=== PATIENT | female | born 1940 | race Caucasian/White ===

== ENCOUNTER 2024-06-27 15:46 | Emergency (ER) | payer MEDICAID, SELFPAY ==
--- NOTE | ~2024-06-27 | CT_ITS ---
CLINICAL HISTORY: new right arm tremor CT head without contrast Comparison: None Findings: No acute intracranial hemorrhage. No midline shift or hydrocephalus. Mild-moderate volume loss is generalized. Mild white matter lesions likely related to small-vessel ischemic disease. No large arterial territorial infarction by CT. Cavum velum interpositum. No acute skull fracture. Mild nasal bone lucencies appear old/chronic. Mild mucosal thickening of the imaged paranasal sinuses. Trace left mastoid effusion. IMPRESSION: No acute intracranial abnormality by CT. This document has been electronically signed by: Rl Mondragon MD on 06/27/2024 20:28:28
--- NOTE | ~2024-06-27 | XR_ITS ---
CLINICAL HISTORY: pain 3 view right shoulder Comparison: None Findings: Mild deformity of the right clavicle appears old/chronic. Mild-moderate osteoarthritis of the right AC joint. Mild to moderate osteoarthritis of the right glenohumeral joint with chronic old appearing deformity in cystic lucencies of the proximal humerus. No acute displaced fracture. No dislocation. Interstitial opacities are nonspecific in the imaged lungs and may reflect pulmonary edema or pneumonitis. Mild atelectasis also present. Imaged mild rib deformities appear old. IMPRESSION: 1. No acute fracture or dislocation of the right shoulder. 2. Mild-moderate osteoarthritis. This document has been electronically signed by: Rl Mondragon MD on 06/27/2024 19:09:40
[2024-06-27 16:16] VITALS: BP 141/51; PULSE 68; RESP 18; TEMP 36.2; O2SAT 95; BMI 32.9
--- NOTE | 2024-06-27 16:17 | ED.GENADULT ---
HPI - General Adult General Chief complaint: General Medical Stated complaint: rt arm tremors? Time Seen by Provider: 06/27/24 18:03 Source: patient, family (Daughter), RN notes reviewed and old records reviewed Mode of arrival: ambulatory Limitations: no limitations History of Present Illness ED Provider: Shamir MCGARRY narrative: 83-year-old female presents for evaluation of right arm/shoulder tremors. Vomiting per the patient's daughter, the patient had an episode of vomiting 3 nights ago on Saturday night. She has had intermittent tremors to the right shoulder ever since. She also complains of pain to the right shoulder and limited range of motion. She denies any headache, neck pain. There was no loss of consciousness pain She denies any chest pain, shortness of breath. This reportedly has happened in the past In the lack of the daughter is concerned because the patient is visiting from [place] and is not honest with when she falls, and therefore the daughter is concerned that there was a fall that the patient is not forthcoming with all Related Data Allergies Allergy/AdvReac Type Severity Reaction Status Date / Time No Known Allergies Allergy Verified 06/27/24 16:20 Review of Systems Constitutional: Constitutional: Denies body ache(s), Denies chills, Denies frequent falls and Denies headache(s) Eyes: Eyes: Denies blurry vision, Denies floaters and Denies irritation ENT: Denies vertigo, Denies dizziness, Denies otalgia, Denies facial pain and Denies headache(s) Cardiovascular: Cardiovascular: Denies chest pain and Denies dyspnea Respiratory: Respiratory: Denies cough and Denies dyspnea Gastrointestinal: Gastrointestinal: Denies abdominal pain, Denies nausea and Denies vomiting Musculoskeletal: Musculoskeletal: Denies back pain, Denies deformity, Reports limited range of motion, Denies numbness and Reports stiffness Neurologic: Denies vertigo, Denies dizziness, Denies frequent falls, Denies headache(s), Denies numbness and Reports tremor(s) Psychiatric: Psychiatric: Denies anxiety [facility] Social History Social History Advance Directives: No Advance Directives Information Provided: Yes Physical Exam ED Vital Signs: Vital Signs - 24 hr 06/27/24 16:16 06/27/24 16:49 06/27/24 19:11 Temperature 97.1 F 97.9 F 97.7 F Pulse Rate 68 60 58 Respiratory Rate 18 16 18 Blood Pressure 141/51 H 140/65 H 197/81 H Pulse Oximetry 95 98 96 Oxygen Delivery Method Room Air Room Air 06/27/24 20:00 Temperature 97.0 F Pulse Rate 50 Respiratory Rate 18 Blood Pressure 169/70 H Pulse Oximetry 97 Oxygen Delivery Method BMI result Body Mass Index 32.9 Const General: healthy appearing, comfortable, no acute distress, alert and awake Nutritional Appearance: well nourished Orientation/consciousness: patient oriented x3 HENMT Head: Yes normocephalic and Yes atraumatic Eyes Eyelids: Yes eyelids normal Conjunctivae: conjunctivae normal Sclerae: sclerae normal Corneas: corneas normal Pupils: Equal, round and reactive pupils present EOM: EOMs intact bilaterally Resp Effort & Inspection: normal respiratory effort, able to speak in complete sentences and not labored Cardio Rate: regular rate Rhythm: regular rhythm Skin General skin exam: elasticity normal Neuro General: patient oriented x3 Cranial nerves: Yes CN's II-XII intact bilaterally, Yes Facial sensation intact/muscles of mastication intact, Yes Equal, round and reactive pupils present, Yes Bilaterally intact EOM present and Yes Normal facial strength present Cognition (Neuro): normal cognition Motor exam (neuro): 5/5 motor strength present throughout (Including right upper extremity) and Normal motor muscle tone present throughout Extrem Other: Patient has tenderness to the right lateral shoulder in the proximal humerus area. There was no obvious deformity. She is unable to abduct the right upper extremity above the shoulder. Course Course Course Narrative: Jared Silva VESSEL LINER 06/27 1615 This is a rapid medical exam. Deferred additional HPI, ROS, PE to primary provider. 83 yo female with history of hypothyroidism, HTN, HLD here with two episodes of vomiting (Saturday), after vomiting noticed intermittent shaking of the right upper arm. Per patient this has happened before. Not noticed in triage. Will obtain labs. VSS Medical Decision Making Medical Decision Making MDM Narrative: 83-year-old female presents for evaluation of a tremor to the right shoulder. She has not had any tremors during my exam. However the patient's daughter shows me a video from this morning that shows an apparent tremor of the right upper extremity. It appears that it could be consistent with a muscle spasm possibly due to injury. Plan for x-rays. The patient has no neuro deficits. Cranial nerves are intact, there was no facial droop, she is speaking clearly, strength is intact. However given the new onset of tremor we will get a CT scan of the brain. I do feel that a musculoskeletal cause is more likely at this time Differential Diagnosis Differential Diagnoses: The differential diagnosis associated with the presentation includes Muscle strain CVA Brain mass Muscle spasm Humerus fracture Shoulder dislocation Radiculopathy Lab Data MDM Lab Attestation statement: I reviewed the patient's lab results. No leukocytosis or significant anemia. Normal platelet count. No significant electrolyte abnormalities warranting intervention. Slight elevation of BUN with a normal creatinine 0.73 06/27/24 16:25 06/27/24 16:25 Labs: Lab Results 06/27/24 Range/Units 16:25 WBC 9.4 (4.8-10.8) X10*3/uL RBC 4.26 (4.20-5.50) X10*6/uL Hgb 12.3 (12.0-16.0) g/dl Hct 36.9 L (37.0-47.0) % MCV 86.6 (80.0-98.0) fL MCH 28.9 (27.0-33.0) pg MCHC 33.3 (31.0-35.0) g/dl RDW 14.6 (11.0-16.0) % Plt Count 245 (160-400) X10*3/uL MPV 10.4 (9.4-12.3) fL Immature Gran % (Auto) 0.4 (0.0-0.4) % Neut % (Auto) 70.5 (45-73) % Lymph % (Auto) 21.1 (20-40) % [place] % (Auto) 5.5 (2-11) % Eos % (Auto) 1.9 (0-4) % Baso % (Auto) 0.6 (0-2) % Lymph # (Auto) 2.0 (1.2-4.9) X10*3/uL [place] # (Auto) 0.5 (0.1-1.2) X10*3/uL Eos # (Auto) 0.2 (0.0-0.4) X10*3/uL Baso # (Auto) 0.1 (0.0-0.2) X10*3/uL Abs Immat Gran (auto) 0.04 H (0.00-0.03) X10*3/uL Absolute Neuts (auto) 6.6 (2.0-8.3) x10*3/uL Absolute Nucleated RBC 0.000 (0.0-0.012) X10*3/uL Nucleated RBC % (auto) 0.0 (0.0-0.2) /100WBC Sodium 141 (135-145) mmol/L Potassium 4.5 (3.3-5.1) mmol/L Chloride 108 (96-108) mmol/L Carbon Dioxide 26 (22-29) mmol/L Anion Gap 12 (12-20) BUN 20 H (9-16) mg/dL Creatinine 0.73 (0.5-1.4) mg/dL Estim Creat Clear Calc 41.7 Estimated GFR > 60 Random Glucose 100 (60-115) mg/dL Calcium 9.7 (8.4-10.2) mg/dL Magnesium 2.2 (1.6-2.6) mg/dL Total Bilirubin 0.5 (0.0-1.0) mg/dL Direct Bilirubin 0.2 (0.0-0.5) mg/dL AST 25 (5-31) U/L ALT 22 (0-31) U/L Alkaline Phosphatase 78 (39-117) U/L Total Protein 7.3 (6.5-8.0) g/dL Albumin 4.2 (3.5-5.0) g/dL Independent Interpretation I performed an independent interpretation of an: CT Scan Interpretation: agree with Radiology interpretation, no obvious acuteabnormalities Radiology Impression Discussion of test interpretation with radiology: I have reviewed the radiologist's reading. Radiologist Impression: Findings: No acute intracranial hemorrhage. No midline shift or hydrocephalus. Mild-moderate volume loss is generalized. Mild white matter lesions likely related to small-vessel ischemic disease. No large arterial territorial infarction by CT. Cavum velum interpositum. No acute skull fracture. Mild nasal bone lucencies appear old/chronic. Mild mucosal thickening of the imaged paranasal sinuses. Trace left mastoid effusion. IMPRESSION: No acute intracranial abnormality by CT. This document has been electronically signed by: Rl Mondragon MD on 06/27/2024 20:28:28 Discharge Plan Discharge Clinical Impression: Acute pain of right shoulder Patient Disposition: Home, Self-Care Instructions: Arthralgia (ED), Shoulder Pain (ED) Additional Instructions: Justus had a workup that included blood work, CT scan and x-rays. Her blood work was reassuring. The CT scan of her head did not show any concerning abnormalities the x-ray of her right shoulder showed a mild deformity of the right collarbone as well as a mild deformity of the proximal humerus these both appear old and or chronic. there is no new or recent fracture. The x-ray also shows [id number] arthritis follow-up with your primary doctor, return for new or worsening symptoms CLINICAL HISTORY: pain 3 view right shoulder Comparison: None Findings: Mild deformity of the right clavicle appears old/chronic. Mild-moderate osteoarthritis of the right AC joint. Mild to moderate osteoarthritis of the right glenohumeral joint with chronic old appearing deformity in cystic lucencies of the proximal humerus. No acute displaced fracture. No dislocation. Interstitial opacities are nonspecific in the imaged lungs and may reflect pulmonary edema or pneumonitis. Mild atelectasis also present. Imaged mild rib deformities appear old. IMPRESSION: 1. No acute fracture or dislocation of the right shoulder. 2. Mild-moderate osteoarthritis. This document has been electronically signed by: Rl Mondragon MD on 06/27/2024 19:09:40 Print Language: Monegasque
[2024-06-27 16:29] LABS: MANUAL DIFF FLAG NO
[2024-06-27 16:37] LABS: Basophils Absolute Auto 0.1 X10*3/uL (0.0-0.2); Basophils Percent Auto 0.6 % (0-2); Eosinophils Absolute Auto 0.2 X10*3/uL (0.0-0.4); Eosinophils Percent Auto 1.9 % (0-4); Hematocrit 36.9 % (37.0-47.0); Hemoglobin 12.3 g/dl (12.0-16.0); Imm Gran Abs Auto 0.04 X10*3/uL (0.00-0.03); Imm Gran Pct Auto 0.4 % (0.0-0.4); Lymphocytes Percent Auto 21.1 % (20-40); Mean Corpuscular HGB Conc 33.3 g/dl (31.0-35.0); Mean Corpuscular Hemoglobin 28.9 pg (27.0-33.0); Mean Corpuscular Volume 86.6 fL (80.0-98.0); Mean Platelet Volume 10.4 fL (9.4-12.3); Monocytes Absolute Auto 0.5 X10*3/uL (0.1-1.2); Monocytes Percent Auto 5.5 % (2-11); Neutrophils Absolute Auto 6.6 x10*3/uL (2.0-8.3); Neutrophils Percent Auto 70.5 % (45-73); Platelet Count 245 X10*3/uL (160-400); Red Blood Count 4.26 X10*6/uL (4.20-5.50); Red Cell Distribution Width 14.6 % (11.0-16.0); White Blood Count 9.4 X10*3/uL (4.8-10.8)
[2024-06-27 16:44] LABS: Alanine Aminotransferase 22 U/L (0-31); Albumin Level 4.2 g/dL (3.5-5.0); Alkaline Phosphatase 78 U/L (39-117); Anion Gap 12 (12-20); Aspartate Amino Transferase 25 U/L (5-31); Bilirubin Direct 0.2 mg/dL (0.0-0.5); Bilirubin Total 0.5 mg/dL (0.0-1.0); Blood Urea Nitrogen 20 mg/dL (9-16); Calcium 9.7 mg/dL (8.4-10.2); Carbon Dioxide 26 mmol/L (22-29); Chloride 108 mmol/L (96-108); Creatinine Clr Calc Pharmacy 41.7; Estimated Glomerular Filt Rate > 60; Glucose Random 100 mg/dL (60-115); Magnesium 2.2 mg/dL (1.6-2.6); Potassium 4.5 mmol/L (3.3-5.1); Sodium 141 mmol/L (135-145); Total Protein 7.3 g/dL (6.5-8.0)
[2024-06-27 16:49] VITALS: BP 140/65; PULSE 60; RESP 16; TEMP 36.6; O2SAT 98
--- NOTE | 2024-06-27 16:56 | PC.NURSE ---
Patient is a 83 yo female with history of hypothyroidism, HTN, HLD here with two episodes of vomiting (Saturday), after vomiting noticed intermittent shaking of the right upper arm. Per patient this has happened before. Daughters video visualized and unable to see the tremors. Lungs clear bilat. Respirations even and non-labored. Abdomen soft, distended with positive bowel sounds. Positive pedal pulses with trace edema noted.
[2024-06-27 19:11] VITALS: BP 197/81; PULSE 58; RESP 18; TEMP 36.5; O2SAT 96
[2024-06-27 20:00] VITALS: BP 169/70; PULSE 50; RESP 18; TEMP 36.1; O2SAT 97
[2024-06-27 21:04] VITALS: BP 169/70; PULSE 50; RESP 18; TEMP 36.1; O2SAT 97
== END 2024-06-27 21:05 | disposition home or self-care (01) ==
PROVIDERS: Nurse Practitioner Family; Emergency Provider Emergency Medicine
DX: M25.511 Pain in right shoulder (principal); R11.10 Vomiting, unspecified; R25.1 Tremor, unspecified
CPT/HCPCS: 36415; 70450; 73030; 80048; 80076; 83735; 85025; 99284

== ENCOUNTER → 2024-06-27 18:12 | Outpatient (BNV) | payer SELFPAY | PROVIDERS: Emergency Provider Emergency Medicine; Visit Provider Radiology Neuroradiology | DX: R25.1 Tremor, unspecified (principal); M19.011 Primary osteoarthritis, right shoulder | CPT/HCPCS: 70450; 73030 ==

== ENCOUNTER 2024-12-22 09:54 | Emergency (ER) | payer MEDICAID, SELFPAY ==
--- NOTE | ~2024-12-22 | CT_ITS ---
EXAMINATION: CT HEAD WITHOUT CONTRAST CLINICAL INFORMATION: Right arm tremor COMPARISON: CT 06/27/2024 TECHNIQUE: Contiguous axial imaging was performed from the skull base to vertex without intravenous administration of contrast. This CT examination was performed using dose optimization techniques as appropriate, variously including the following: *Automated exposure control *Adjustment of mA and/or kV according to patient size (this includes techniques or standardized protocols for targeted exams where dose is matched to indication/reason for exam; i.e. extremities or head) *Use of iterative reconstruction technique FINDINGS: There is no evidence of acute intracranial hemorrhage or edematous large vessel territorial infarction. No abnormal mass effect or midline shift is seen. Jarvis to white matter differentiation is well preserved. No abnormal extra-axial fluid collections are identified. Commensurate prominence of the ventricles and sulci is compatible with generalized parenchymal volume loss. There is moderate periventricular and subcortical white matter hypoattenuation, most likely representing microangiopathic disease. No acute calvarial fracture.. Unchanged small sclerotic focus in the right frontal calvarium.. Paranasal sinuses and mastoid air cells are well-aerated. CT/CT head/brain wo IV con IMPRESSION: 1. No CT evidence of acute intracranial hemorrhage or edematous large vessel territorial infarction. 2. 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 Electronically signed by: Julius Cee MD 12/22/2024 10:57 AM [facility]
[2024-12-22 10:14] VITALS: BP 158/70; PULSE 71; RESP 20; TEMP 35.9; O2SAT 96; BMI 28.1
--- NOTE | 2024-12-22 10:14 | ED.GENADULT ---
HPI - General Adult General Chief complaint: General Medical Stated complaint: tremors Time Seen by Provider: 12/22/24 16:08 History of Present Illness ED Provider: Dhiraj MCGARRY narrative: The patient is an 84-year-old woman who has recently been considered to have dementia and who was moved from [place] to this area about 6 months ago. She was moved up here by her daughter who was concerned about her mother's health. The patient apparently had an MRI in [place] before moving to this area and she has followed up with the primary care doctor in this office who arranged an outpatient MRI through the [facility] system recently because of the patient's new diagnosis of dementia also to see if there was any potential suspicion for normal pressure hydrocephalus. The patient had an MRI of the brain without contrast on December 04, 2024, proximally 3 weeks ago. The MRI showed hyperintense foci in the white matter which was considered nonspecific but most likely reflecting chronic small-vessel disease. There were no findings to suggest normal pressure hydrocephalus. The patient's daughter said that the patient has been complaining of a sense of her right shoulder or arm moving abnormally. The patient's daughter says that the patient has chronic pain in the right arm. She says that about 2 months ago the patient had an episode that lasted just a few sec in which the right arm seemed to move in voluntarily. The patient is in the emergency room today because the patient had a brief episode of right shoulder abnormal movement yesterday evening and then another movement that was more impressive this morning. The episode lasted about 10 seconds. This episode was not associated with any other abnormalities in her neurological status. There was no change in her speech, no facial abnormalities, no right leg abnormalities. She did not lose consciousness. It was not associated with any headache or chest pain. Nevertheless the daughter was alarmed by the episode and brought her to the emergency room. The patient is on levothyroxine, losartan, atorvastatin, and cholecalciferol. Related Data Allergies Allergy/AdvReac Type Severity Reaction Status Date / Time No Known Allergies Allergy Verified 12/22/24 10:19 Review of Systems Review of Systems: Yes all other systems are reviewed and are negative [facility] Social History Social History Advance Directives: Yes Advance Directives Information Provided: No Advance Directives on File: No Do you have a plan to hurt others: No Plan Physical Exam ED Vital Signs: Vital Signs - 24 hr 12/22/24 10:14 11/11/25 16:02 12/22/24 16:59 Temperature 96.6 F L 0 F L Pulse Rate 71 54 54 Respiratory Rate 20 17 17 Blood Pressure 158/70 H 149/57 H 149/57 H Pulse Oximetry 96 95 95 Oxygen Delivery Method Room Air Room Air Room Air BMI result Body Mass Index 28.1 Const Other: The patient is an 84-year-old woman who was awake and alert. She does not appear in acute distress. She is pleasant and cooperative. She is primarily Upper Sorbian speaking. I interviewed her with a Upper Sorbian pediatric speech language pathologist. Her daughter was at the bedside. HENMT Other: The face is symmetrical. ?Mucous membranes moist. Eyes Other: Pupils are round equal, conjunctivae are clear, extraocular movements intact Neck Neck: Yes normal visual inspection, Yes full ROM and Yes no JVD Resp Effort & Inspection: normal respiratory effort Auscultation: clear to auscultation bilaterally Cardio Rate: regular rate Rhythm: regular rhythm Heart sounds: S1 normal heart sound present and S2 normal heart sound present GI Other: Abdomen is soft and nontender Skin Other: The skin is dry and unremarkable Neuro Other: The patient is an elderly woman who was awake and alert. She seems to have a normal level of consciousness. She has a vague demeanor suggestive of dementia. Pupils are round equal, extraocular movements are intact, the face is symmetrical, speech is clear. No obvious facial nerve deficit. She moves her neck easily. She has some pain when she moves her right arm and she seems to preferentially use her left arm to pull up her right arm but when I test for pronator drift there was no pronator drift. Extrem Other: The patient has some tenderness in the region of the right shoulder in the right upper arm generally. There is no calf swelling or tenderness. No asymmetry. No peripheral edema. Course Course Course Narrative: This is a rapid medical exam performed by Parisa South NP: Additional HPI, ROS, PE not included below will be deferred to primary provider. Patient is an 84y/o Upper Sorbian speaking female presenting to the ED with daughter who reports that around 9pm last night, she noted a tremor to her right arm. She notes that patient had a recent fall with R shoulder injury. Had x-rays, was told rotator cuff injury. Patient noted to have a right facial droop in triage. Daughter has photos on phone of a recent rash to R side of face which appear consistent with shingles. Sxs are forehead sparing in triage. Case discussed with attending, Dr. Bhakta, who does not feel patient needs to be activated as acute stroke. Plan: labs, CT head Medical Decision Making Medical Decision Making [facility] Narrative: The patient is an 84-year-old female with a history of dementia who presents because the daughter is concerned about what seems to be some abnormal movements of the right arm. The mother showed me a video on her phone. The video showed the patient possibly exhibiting some rhythmic movements centered around the shoulder lasting for under 15 seconds. The daughter feels that there was a similar episode yesterday and possibly a few months ago. The patient has recently been brought to this area from [place]. Since arriving in this area she had an MRI at [facility] a few weeks ago that was unremarkable. Here in the emergency room the patient seems clinically stable and well. She has negative head CT. Other investigations are unremarkable. I do not know if the phenomenon demonstrated by the video on the daughter's phone represents a focal seizure. It is a possibility. Otherwise the patient seems well. This does not seem to be the presentation of a stroke or an acute coronary syndrome or other acutely dangerous process. The patient looks well and has no symptoms in the emergency department. The daughter seems comfortable taking the patient home to follow up with outpatient Neurology. The daughter was given the contact information for [facility] outpatient Neurology. Lab Data 12/22/24 11:13 12/22/24 11:13 Labs: Lab Results 12/22/24 Range/Units 11:13 WBC 7.4 (4.8-10.8) X10*3/uL RBC 4.56 (4.20-5.50) X10*6/uL Hgb 13.0 (12.0-16.0) g/dl Hct 40.1 (37.0-47.0) % MCV 87.9 (80.0-98.0) fL MCH 28.5 (27.0-33.0) pg MCHC 32.4 (31.0-35.0) g/dl RDW 14.3 (11.0-16.0) % Plt Count 239 (160-400) X10*3/uL MPV 10.4 (9.4-12.3) fL Immature Gran % (Auto) 0.3 (0.0-0.4) % Neut % (Auto) 71.2 (45-73) % Lymph % (Auto) 20.7 (20-40) % [place] % (Auto) 5.9 (2-11) % Eos % (Auto) 1.2 (0-4) % Baso % (Auto) 0.7 (0-2) % Lymph # (Auto) 1.5 (1.2-4.9) X10*3/uL [place] # (Auto) 0.4 (0.1-1.2) X10*3/uL Eos # (Auto) 0.1 (0.0-0.4) X10*3/uL Baso # (Auto) 0.1 (0.0-0.2) X10*3/uL Abs Immat Gran (auto) 0.02 (0.00-0.03) X10*3/uL Absolute Neuts (auto) 5.2 (2.0-8.3) x10*3/uL Absolute Nucleated RBC 0.000 (0.0-0.012) X10*3/uL Nucleated RBC % (auto) 0.0 (0.0-0.2) /100WBC Sodium 142 (135-145) mmol/L Potassium 4.3 (3.3-5.1) mmol/L Chloride 109 H (96-108) mmol/L Carbon Dioxide 27 (22-29) mmol/L Anion Gap 10 L (12-20) BUN 20 H (9-16) mg/dL Creatinine 0.75 (0.5-1.4) mg/dL Estim Creat Clear Calc 44.3 Estimated GFR > 60 Random Glucose 114 (60-115) mg/dL Calcium 9.8 (8.4-10.2) mg/dL Total Bilirubin 0.4 (0.0-1.0) mg/dL AST 22 (5-31) U/L ALT 17 (0-31) U/L Alkaline Phosphatase 78 (39-117) U/L Total Protein 7.6 (6.5-8.0) g/dL Albumin 4.5 (3.5-5.0) g/dL Discharge Plan Discharge Clinical Impression: Seizure-like activity, Abnormal involuntary movements Patient Disposition: Home, Self-Care Additional Instructions: Based on the video that you have on your phone I have to consider that she might be having what we call ?focal seizures. Focal seizures are different from generalized seizures because focal seizures affect only 1 part of the body and they do not affect a person's level of consciousness. People who experience focal seizures remain awake during the episode. I think based on the video you have shown me that it would be appropriate for you make an appointment for your mother with a neurologist. You have been provided with the contact information for the [facility] office. I would recommend calling them in the morning to see if you can get a follow up appointment to discuss these episodes. Also stay in touch with your regular doctor for additional advice as needed. Continue her regular medications. Return to the emergency room if worse. Referrals: [facility] [Provider Group] Aissatou Kahn MD [Primary Care Provider, Family Practice] Interventions: ED Discharge Assessment Last Done: 12/22/24 16:59 Discharge Date/Time: 12/22/24 17:00 Print Language: Upper Sorbian
[2024-12-22 11:22] LABS: MANUAL DIFF FLAG NO
[2024-12-22 11:35] LABS: Hematocrit 40.1 % (37.0-47.0); Hemoglobin 13.0 g/dl (12.0-16.0); Imm Gran Abs Auto 0.02 X10*3/uL (0.00-0.03); Imm Gran Pct Auto 0.3 % (0.0-0.4); Lymphocytes Absolute Auto 1.5 X10*3/uL (1.2-4.9); Mean Corpuscular HGB Conc 32.4 g/dl (31.0-35.0); Mean Corpuscular Hemoglobin 28.5 pg (27.0-33.0); Mean Corpuscular Volume 87.9 fL (80.0-98.0); NRBC Abs Auto 0.000 X10*3/uL (0.0-0.012); NRBC Pct Auto 0.0 /100WBC (0.0-0.2); Platelet Count 239 X10*3/uL (160-400); Red Blood Count 4.56 X10*6/uL (4.20-5.50); White Blood Count 7.4 X10*3/uL (4.8-10.8)
[2024-12-22 11:43] LABS: Alanine Aminotransferase 17 U/L (0-31); Albumin Level 4.5 g/dL (3.5-5.0); Alkaline Phosphatase 78 U/L (39-117); Anion Gap 10 (12-20); Aspartate Amino Transferase 22 U/L (5-31); Blood Urea Nitrogen 20 mg/dL (9-16); Calcium 9.8 mg/dL (8.4-10.2); Carbon Dioxide 27 mmol/L (22-29); Chloride 109 mmol/L (96-108); Creatinine Clr Calc Pharmacy 44.3; Estimated Glomerular Filt Rate > 60; Potassium 4.3 mmol/L (3.3-5.1); Sodium 142 mmol/L (135-145); Total Protein 7.6 g/dL (6.5-8.0)
[2024-12-22 16:02] VITALS: BP 149/57; PULSE 54; RESP 17; O2SAT 95
--- NOTE | 2024-12-22 16:30 | ECG_ITS ---
Test Reason : [email or web address] Blood Pressure : */* mmHG Vent. Rate : 54 BPM Atrial Rate : 54 BPM P-R Int : 134 ms QRS Dur : 84 ms QT Int : 456 ms P-R-T Axes : 21 -3 16 degrees QTcB Int : 432 ms Sinus bradycardia Inferior infarct , age undetermined Abnormal ECG No previous ECGs available Referred By: Jerald Hearn Electronically Signed By: ROXIE BLUM MD
[2024-12-22 16:59] VITALS: BP 149/57; PULSE 54; RESP 17; TEMP -17.7; TEMP 0; O2SAT 95
--- OUTSIDE RECORDS SUMMARY | 2024-12-22 17:06 | XMS_ITS | Patient Health Record ---
Author Organization [employer] Address [address] [place] [address] Care Team Providers Care Account Specialist Name Role Phone Evelyn Mclaughlin Unavailable [phone] Allergies No Known Allergies Reason For Referral No Information Medications Medication SIG (Take, Route, Frequency, Duration) Notes Start Date End Date Status Zinc 50 MG Tablet 1 capsule Orally Onc e a day; Duration: 90 days Not-Taking Fluticasone Propionate 50 MCG/ACT Suspension 1 spray in each nostril Nasally Once a day; Duration: 30 day(s) Not-Taking Atorvastatin Calcium 40 MG Tablet 1 tablet Orally Once a day; Duration: 90 days Active Losartan Potassium 25 MG Tablet TAKE 1 TABLET BY MOUTH ONCE A DAY; Duration: 90 days Active Levothyroxine Sodium 25 MCG Tablet 1 tablet in the morning on an empty stomach Orally Once a day; Duration: 90 days Active Immunizations Vaccine Route Administration Date Status Comme nts COVID-19 Vaccine Moderna Unknown 04/12/2020 Administered COVID-19 Vaccine Moderna IM Intramuscular 01/23/2021 Administered COVID-19 Vaccine Moderna IM Intramuscular 08/21/2021 Administered Flulaval Quadrivalent IM Intramuscular 12/23/2020 Administered [facility] [id number] Social History Tobacco Use: Social History Observation Description Date Details (start date - stop date) Never Smoker NA - NA Social History Tobacco Use Social Info Question Answer Notes Tobacco Use/Smoking Are you a nonsmoker Drugs/Alcohol: Social Info Question Answer Notes Alcohol Screen (Audit-C) Did you have a drink containing alcohol in the past year? No Points 0 Interpretation Negative Drugs Have you used drugs other than those for medical reasons in the past 12 months? No Caffeine Intake: 1-2 cups per day Additional Details Category Social Info Options Details Drugs/Alcohol: Do you smoke marijuana? De nies Do you drink alcohol? 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) Unspecified mood [affective] disorder (F39) Active confirmed PHQ9 positive (08/12/19) Problem Urge incontinence of urine (03985472) Urge incontinence (N39.41) Active confirmed Problem Essential hypertension (63186335) Essential hypertension (I10) Active confirmed Problem Hypothyroidism (20424211) Hypothyroidism, unspecified type (E03.9) Active confirmed Problem Hyperlipidaemia (21880063) Hyperlipidemia, unspecified hyperlipidemia type (E78.5) Active confirmed Problem Constipation (16297285) Constipation, unspecified constipation type (K59.00) Active confirmed Problem Age-related osteoporosis (428301945) Osteoporosis without current pathological fracture, unspecified osteoporosis type (M81.0) Active confirmed Problem Memory loss (61415660) Memory loss (R41.3) Active confirmed Problem SI - Stress incontinence (82053421) Stress incontinence (N39.3) Active confirmed Problem Allergic rhinitis (01928360) Allergic rhinitis, unspecified seasonality, unspecified trigger (J30.9) Active confirmed Problem Kidney stone (85960373) Renal lithiasis (N20.0) Active confirmed Problem Incipient senile cataract (043815181) Age-related incipient cataract, unspecified laterality (H25.099) Active confirmed Problem Vitamin D deficiency (82044314) Vitamin D deficiency (E55.9) Active confirmed Plan Of Treatment Pending Test Test Name Order Date PCP - COA 08/12/2019 PCP - COA 04/12/2021 PCP - COA 02/29/2020 Future Test Test Name Order Date [facility] ECG/EKG 08/12/2019 U/S Abdominal - Aorta 09/26/2020 U/S Carotid - Bilateral 09/26/2020 U/S Kidney/Renal and Bladder 07/26/2021 Insurance Providers Payer Name Payer Address Payer Phone Subscriber Number Group Number Insured Name Patient Relationship to Insured Coverage Start Date Coverage End Date [employer] [address] [address] [place] [address] [phone] [id number] Justus Carter Self - patient is the insured Medicaid of [place] [address] [place] [address] [id number] Justus Carter Self - patient is the insured Medical (General) History Medical History History ICD Code Dyslipidemia Allergy MMG screening 11/20/2016 Surgical History Surgery Date(Month/Year) Bilateral eye(Glaucoma) 2012
== END 2024-12-22 17:00 | disposition home or self-care (01) ==
PROVIDERS: Registered Nurse Emergency; Emergency Provider Emergency Medicine; PCP Student in an Organized Health Care Education/Training Program
DX: R56.9 Unspecified convulsions (principal); R25.9 Unspecified abnormal involuntary movements; R00.0 Tachycardia, unspecified
CPT/HCPCS: 36415; 70450; 80053; 85025; 93005; 99284

== ENCOUNTER → 2024-12-22 10:22 | Outpatient (BNV) | payer MEDICAID, SELFPAY | PROVIDERS: PCP Student in an Organized Health Care Education/Training Program; Visit Provider Radiology Diagnostic Ultrasound | DX: G31.89 Other specified degenerative diseases of nervous system (principal) | CPT/HCPCS: 70450 ==

== ENCOUNTER → 2024-12-22 16:30 | Outpatient (BNV) | payer MEDICAID, SELFPAY | PROVIDERS: Emergency Provider Emergency Medicine; PCP Student in an Organized Health Care Education/Training Program; Visit Provider Internal Medicine Cardiovascular Disease | DX: R00.1 Bradycardia, unspecified (principal) | CPT/HCPCS: 93010 ==